=== PATIENT | female | born 1975 | race Caucasian/White ===

== ENCOUNTER → 2017-03-17 | Outpatient (CLI) | payer OTHER ==
[2017-03-17 17:53] LABS: URINE APPEARANCE CLEAR (CLEAR); URINE BILIRUBIN NEG (NEG); URINE COLOR YELLOW; URINE NITRITE NEG (NEG); URINE SPECIFIC GRAVITY 1.007 (1.000-1.030); UROBILINOGEN NEG (NEG)
[2017-03-17 18:07] LABS: MANUAL MICROSCOPIC REQUIRED? NO; REVIEW REQ? NO
== END | disposition home or self-care (01) ==
LOC: C.LABSPEC 17:25
PROVIDERS: ATTEND Obstetrics & Gynecology
DX: O09.511 Supervision of elderly primigravida, first trimester (principal); Z3A.00 Weeks of gestation of pregnancy not specified

== ENCOUNTER → 2017-03-21 | Outpatient (CLI) | payer OTHER | END | disposition home or self-care (01) | LOC: C.PAPS 09:46 | PROVIDERS: ATTEND Obstetrics & Gynecology | DX: Z12.4 Encounter for screening for malignant neoplasm of cervix (principal) ==

== ENCOUNTER → 2017-03-21 | Outpatient (CLI) | payer OTHER ==
[2017-03-24 02:55] LABS: CHLAMYDIA TRACH RNA*** NOT DETECTED (NOT DETECTED); GC (NEIS GONORRHOEAE)RNA** NOT DETECTED (NOT DETECTED)
== END | disposition home or self-care (01) ==
LOC: C.LAB1850 16:09
PROVIDERS: ATTEND Obstetrics & Gynecology
DX: O09.512 Supervision of elderly primigravida, second trimester (principal); Z3A.00 Weeks of gestation of pregnancy not specified

== ENCOUNTER → 2017-06-14 | Outpatient (CLI) | payer OTHER ==
[~2017-06-14] MED LIST: FLUT0.15; PRENTAB26 PO
[2017-06-14 17:37] LABS: HEMATOCRIT 35.9 % (37-47); HEMOGLOBIN 12.1 g/dL (12.0-16.0)
== END | disposition home or self-care (01) ==
LOC: C.LAB1850 16:57
PROVIDERS: ATTEND Obstetrics & Gynecology
DX: O09.512 Supervision of elderly primigravida, second trimester (principal); Z3A.00 Weeks of gestation of pregnancy not specified

== ENCOUNTER 2017-06-27 08:00 | Inpatient (IN) | payer OTHER ==
[~2017-06-27] VITALS: Ht 157.5 cm; Wt 45.5 kg
[2017-06-27] MEDS ORDERED: LACTATED RINGER'S 1000ML 1,000 ML IV SCH (08:34)
[2017-06-27] MEDS ORDERED: LACTATED RINGER'S 1000ML 1,000 ML IV PRN (08:34)
[2017-06-27] MEDS ORDERED: MISOPROSTOL 25 MCG TAB PV ONE (08:45)
[2017-06-27] MEDS ORDERED: PRENTAB26 PO (09:27)
[2017-06-27] MEDS ORDERED: FLUT0.15 (09:27)
[2017-06-27 09:33] VITALS: Ht 157.5 cm; Wt 45.5 kg
[2017-06-27 09:36] LABS: HEMATOCRIT 36.3 % (37-47); HEMOGLOBIN 12.6 g/dL (12.0-16.0); MEAN CELL VOLUME 98.4 fL (80-100); MEAN CORPUSCULAR HEMOGLOBIN 34.1 pg (25-34); MEAN CORPUSCULAR HGB CONC 34.7 g/dl (32-36); MEAN PLATELET VOLUME 11.1 fL (7.4-10.4); PLATELET COUNT 284 K/uL (130-400); RED CELL DISTRIBUTION WIDTH CV 13.6 % (11.5-14.5); RED CELL DISTRIBUTION WIDTH SD 48.8 fL (36.4-46.3); WHITE BLOOD COUNT 9.46 K/uL (4.8-10.8)
[2017-06-27 09:50] LABS: ALBUMIN 2.7 gm/dl (3.4-5.0); CALCIUM 8.9 mg/dl (8.5-10.1); CREATININE 0.53 mg/dl (0.60-1.20); POTASSIUM 3.5 mmol/L (3.5-5.1)
[2017-06-27 09:53] LABS: TOTAL PROTEIN 6.7 gm/dl (6.4-8.2)
[2017-06-27] MEDS ORDERED: BUPIVACAINE 0.25% 30 ML VIAL ONE (13:26)
[2017-06-27] MEDS ORDERED: EpHEDrine SULFATE INJ 50 MG/ML AMP ONE (13:27)
[2017-06-27] MEDS ORDERED: FENTANYL CITRATE INJ 50 MCG/1 ML 2 ML VIAL ONE (13:27)
[2017-06-27] MEDS ORDERED: FENTANYL 2MCG/ML ROPIV 1.25MG/ML 100ML BAG EPI ONE (13:27)
[2017-06-27] MEDS ORDERED: LACTATED RINGER'S 1000ML 500 ML IV PRN (14:32)
[2017-06-27] MEDS ORDERED: NALOXONE HCL INJ 1 MG in SODIUM CHLORIDE 0.9% 1000ML 1,000 ML IV PRN (14:32)
[2017-06-27] MEDS ORDERED: NALOXONE HCL INJ 0.4 MG/1 ML VIAL/CARP IV PRN (14:45)
[2017-06-27] MEDS ORDERED: EpHEDrine SULFATE INJ 50 MG/ML AMP IV PRN (14:45)
[2017-06-27] MEDS ORDERED: NALBUPHINE HCL INJ 10 MG/ML AMP IV PRN (14:45)
[2017-06-27] MEDS ORDERED: FENTANYL 2MCG/ML ROPIV 1.25MG/ML 100ML BAG EPI PRN (14:45)
[2017-06-27] MEDS ORDERED: ONDANSETRON INJ 2 MG/ML 2 ML VIAL IV PRN (14:45)
[2017-06-27] MEDS ORDERED: DiphenhydrAMINE HCL 50 MG/ML VIAL IV PRN (14:45)
[2017-06-27] MEDS ORDERED: OXYTOCIN 30 UNITS/500ML NSS IV ONE (17:22)
[2017-06-27] MEDS ORDERED: OXYTOCIN 30 UNITS/500ML NSS IV PRN (18:00)
[2017-06-27] MEDS ORDERED: LANOLIN OINT EXT PRN (18:00)
[2017-06-27] MEDS ORDERED: ACETAMINOPHEN/CODEINE 300/30MG TAB PO PRN ×2 (18:00)
[2017-06-27] MEDS ORDERED: ACETAMINOPHEN 325 MG TAB PO PRN (18:00)
[2017-06-27] MEDS ORDERED: SUPERCREAM 0.870 % 15GM JAR EXT PRN (18:00)
[2017-06-27] MEDS ORDERED: IBUPROFEN 600 MG TAB PO PRN (18:00)
[2017-06-27] MEDS ORDERED: BENZOCAINE 20% AER SPR 82.5 GM CAN EXT PRN (18:00)
[2017-06-27] MEDS ORDERED: HYDROCORTISONE ACETATE 25 MG SUPP PR PRN (18:00)
--- NOTE | 2017-06-27 18:00 | Discharge Instructions ---
Discharge Instructions Date of Service Jun 27, 2017. Admission Reason for Admission: Induction Discharge Discharge Diagnosis / Problem: after delivery Discharge Goals Goal(s): Decrease discomfort Activity Recommendations Activity Limitations: as noted below . Instructions / Follow-Up Instructions / Follow-Up . ACTIVITY RECOMMENDATIONS: * Vaginal rest (no tampons, douching, intercourse) until after doctor 's visit. * control as discussed with doctor. * Wear a bra for 24 hours/day for comfort. SPECIAL CARE INSTRUCTIONS: Medications: * Multivitamins, one tablet daily. Continue taking for 6 weeks. Call you doctor if: * Temperature greater than or equal to 100.4 degrees F or 38.0 degrees C. * Bleeding becomes heavier than the heaviest part of your period - saturating a sanitary pad within an hour. * Passing large clots. * Unrelieved pain. * Bleeding has a foul smelling odor. * Signs and symptoms of phlebitis: leg pain, warm, red or swollen area on leg. FOLLOW UP VISIT: If appointment is not already scheduled: Please call doctor's office to schedule a follow-up appointment for 6 weeks. Current Hospital Diet Patient's current hospital diet: Clear Liquid Diet Discahrge Diet Recommended Diet: Regular Diet Pending Studies Studies pending at discharge: yes List of pending studies: pathology Medical Emergencies . Who to Call and When: Medical Emergencies: If at any time you feel your situation is an emergency, please call 911 immediately. . Non-Emergent Contact Non-Emergency issues call your: [employer] Operator . . "Provider Documentation" section prepared by Samanta Lemons. . VTE Core Measure Inpt VTE Proph given/why not?: Treatment not indicated
--- NOTE | 2017-06-27 18:12 | Anesthesia Procedure Note ---
Anesthesia Epidural Removal Nt Date & Time Jun 27, 2017 at 18:12 Vital Signs Pain Intensity: 0.0 Notes Mental Status: alert / awake / arousable, participated in evaluation Nausea / Vomiting: adequately controlled Pain: adequately controlled Airway Patency, RR, SpO2: stable & adequate BP & HR: stable & adequate Hydration State: stable & adequate Neuraxial Anesthesia: was administered Anesthetic Complications: no major complications apparent, pt satisfied with anesthetic care Epidural: removed without complications, with tip intact
--- NOTE | 2017-06-27 19:44 | DELIVERY SUMMARY ---
DATE OF OPERATION: 06/27/2017 The patient dilated to complete and pushed over 2 to 3 contractions to deliver a nonviable male infant over an intact perineum. Infant to maternal abdomen, and cord was doubly clamped and cut. Placenta delivered spontaneously, however missing cotyledon noted. Vaginal exam revealed cotyledon at cervical os and removed, and with a single sweep of the uterus no further remaining products of conception were noted. Hemostasis achieved with dilute Pitocin and uterine massage. Cervix and sulci intact. Bladder drained under sterile conditions for 300 mL. EBL 300 mL. Mother stable in recovery. I attest to the content of the Intraoperative Record and any orders documented therein. Any exceptions are noted below. MTDD
--- NOTE | 2017-06-28 07:11 | Progress Note ---
Subjective Jun 28, 2017. Subjective conversation w/ patient, physical exam Ambulation: ambulating normally Voiding: no voiding problems Diet Tolerance: Regular Diet Lochia: Small Pain: some cramps but tolerable Objective Physical Exam General Appearance: WELL-APPEARING, WD/WN, NO APPARENT DISTRESS Abdomen: non tender, soft Fundus: Firm, Relation to Umbilicus (3 down) Extremities: non-tender Laboratory Results Last 24 Hours Test 06/27/17 08:55 White Blood Count 9.46 K/uL Red Blood Count 3.69 M/uL Hemoglobin 12.6 g/dL Hematocrit 36.3 % Mean Corpuscular Volume 98.4 fL Mean Corpuscular Hemoglobin 34.1 pg Mean Corpuscular Hemoglobin Concent 34.7 g/dl RDW Standard Deviation 48.8 fL RDW Coefficient of Variation 13.6 % Platelet Count 284 K/uL Mean Platelet Volume 11.1 fL Sodium Level 136 mmol/L Potassium Level 3.5 mmol/L Chloride Level 105 mmol/L Carbon Dioxide Level 25 mmol/L Anion Gap 6.0 mmol/L Blood Urea Nitrogen 5 mg/dl Creatinine 0.53 mg/dl Est Creatinine Clear Calc Drug Dose 97.3 ml/min Estimated GFR () 133.8 Estimated GFR (Non- 115.5 BUN/Creatinine Ratio 10.1 Random Glucose 95 mg/dl Calcium Level 8.9 mg/dl Total Bilirubin 0.4 mg/dl Aspartate Amino Transf (AST/SGOT) 15 U/L Alanine Aminotransferase (ALT/SGPT) 15 U/L Alkaline Phosphatase 146 U/L Total Protein 6.7 gm/dl Albumin 2.7 gm/dl Globulin 4.0 gm/dl Albumin/Globulin Ratio 0.7 Assessment and Plan Problem List Medical Problems: (1) Midsternal chest pain Status: Acute Post- Day#: 1 Continue Routine Care: stable, grief and mourning support given. discussed pp instructions. f/u 6wks, discussed mood and depression specifically. she feels coping well so far and I agree. d/c home.
== END 2017-06-28 09:20 | disposition home or self-care (01) | DRG 775 ==
LOC: C.LD 08:00
PROVIDERS: ADMIT Obstetrics & Gynecology; ATTEND Obstetrics & Gynecology
PROC: 10E0XZZ Delivery of Products of Conception, External Approach (ICD-10-PCS; principal; 2017-06-27)
PROC: 3E0P7GC Introduction of Other Therapeutic Substance into Female Reproductive, Via Natural or Artificial Opening (ICD-10-PCS; 2017-06-27)
DX: O36.4XX0 Maternal care for intrauterine death, not applicable or unspecified (principal); O35.1XX0 Maternal care for (suspected) chromosomal abnormality in fetus, not applicable or unspecified; O69.81X0 Labor and delivery complicated by cord around neck, without compression, not applicable or unspecified; O09.523 Supervision of elderly multigravida, third trimester; Z37.1 Single stillbirth; Z3A.30 30 weeks gestation of pregnancy